=== PATIENT | female | born 1950 | race Caucasian/White ===

== ENCOUNTER 2021-12-22 13:51 | Outpatient (CLI) | payer MEDICARE, OTHER, SELFPAY ==
[2021-12-22 17:33] LABS: Free T4 Free Thyroxine 1.48 ng/mL (0.78-2.19)
== END 2021-12-22 13:52 | disposition home or self-care (01) ==
PROVIDERS: PCP Internal Medicine; Visit Provider Internal Medicine Endocrinology, Diabetes & Metabolism
DX: E03.9 Hypothyroidism, unspecified (principal)
CPT/HCPCS: 36415; 84439; 84443

== ENCOUNTER 2023-10-26 09:34 | Outpatient (CLI) | payer MEDICARE, OTHER, SELFPAY ==
[2023-10-26 15:18] LABS: Thyroid Stimulating Hormone 0.063 uIU/mL (0.465-4.680)
== END 2023-10-26 09:35 | disposition home or self-care (01) ==
PROVIDERS: PCP Internal Medicine; Visit Provider Internal Medicine Endocrinology, Diabetes & Metabolism
DX: E03.9 Hypothyroidism, unspecified (principal); L64.9 Androgenic alopecia, unspecified
CPT/HCPCS: 36415; 84443